=== PATIENT | male | born 1970 | race Caucasian/White ===

== ENCOUNTER 2021-05-24 19:36 | Emergency (ER) | payer OTHER, SELFPAY ==
--- NOTE | ~2021-05-24 | XR_ITS ---
EXAMINATION: XR CHEST CLINICAL INFORMATION: Shortness of breath COMPARISON: None TECHNIQUE: Frontal view of the chest was obtained. FINDINGS: Lungs are mildly hypoinflated. Airspace disease is present in the right upper lobe. Also, patchy airspace opacities are observed in the perihilar region of the left lung. No pleural effusion or pneumothorax. Cardiomediastinal silhouette has normal size and contour. The visualized bones and upper abdomen are unremarkable. XR/XR chest 1V IMPRESSION: Bilateral patchy airspace opacities are present. Findings are suggestive of multilobar pneumonia. Recommend radiographic follow-up after medical treatment to ensure diminishing/resolving disease.
[2021-05-24 20:12] VITALS: BP 144/97; PULSE 93; RESP 18; TEMP 37.1; O2SAT 94; BMI 34.9
--- NOTE | 2021-05-24 23:08 | ED.URI ---
HPI - URI/Sore Throat General Chief Complaint: Upper Respiratory Symptoms Stated Complaint: O2 went down/+Covid Time Seen by Provider: 05/24/21 23:08 Source: patient Mode of arrival: ambulatory History of Present Illness HPI Narrative: 50-year-old male with history of hypertension and recent diagnosis on 05/21 presents with increased shortness of breath without chest pain / palpitations stating that he got up from a nap this afternoon and noticed that his home oximeter was registering 86%. Related Data Allergies Allergy/AdvReac Type Severity Reaction Status Date / Time No Known Allergies Allergy Verified 05/24/21 20:10 Review of Systems Review of Systems: Pertinent positives and negatives as stated in HPI 10 point review of systems is otherwise negative. [facility] Past Medical History Source: nursing notes reviewed Medical History Hypertension Social History Social History Advance Directives: No Advance Directives Information Provided: No Physical Exam Vital Signs: Vital Signs: Last Vital Signs Temp 98.8 F 05/24/21 20:12 Pulse 93 05/24/21 20:12 Resp 18 05/24/21 20:12 BP 144/97 H 05/24/21 20:12 Pulse Ox 94 05/24/21 20:12 Body Mass Index 34.9 VITAL SIGNS: Reviewed. GENERAL: Well developed, well nourished, in no acute distress. HEAD: Normocephalic/atraumatic EYES: PERRLA, EOMI LUNGS: Normal breath sounds , tachypnea noted, SpO2<93> on room air, walk test does not demonstrate a decrease in oximetry CARDIOVASCULAR: Regular rate and rhythm without noted murmurs, no JVD or lower extremity edema. ABDOMEN: Soft, non-tender, non-distended with bowel sounds. MUSCULOSKELETAL: No tenderness, deformities, or effusions noted on gross inspection. EXTREMITIES: No cyanosis, clubbing or edema. SKIN: Inspection of the skin reveals no rashes NEUROLOGIC: Alert and oriented x 4. Strength and sensation to light touch were grossly intact x 4. Course Course Course Narrative: 50-year-old male with history and clinical presentation consistent with COVID-19 symptoms and although patient is reporting increased shortness of breath this is consistent with COVID-19 infection and low clinical suspicion for any coagulopathy. On formal walk test on room air patient's oxygenation was noted to be maintained at 95% but the oximeter from [facility] was registering 91%. Review of all investigations negative for acute findings other than chest x-ray evidence patient's noted COVID-19 infection with patchy infiltrates bilaterally. Patient was informed of all results and explained to patient that his symptoms are consistent with his underlying COVID-19 infection. He was also given specific guidelines regarding his oxygenation and that if he finds the value to be less than 92% that he should take a few slow deep breaths and monitor for increase. MDM - URI/Sore Throat Lab Data Result diagrams: 05/24/21 23:08 05/24/21 23:08 Labs: Lab Results 05/24/21 05/24/21 05/24/21 Range/Units 23:08 23:08 23:08 WBC 6.0 (4.8-10.8) X10*3/uL RBC 5.21 (4.60-5.80) X10*6/uL Hgb 15.0 (14.0-18.0) g/dl Hct 44.8 (42.0-52.0) % MCV 86.0 (80.0-98.0) fL MCH 28.8 (27.0-33.0) pg MCHC 33.5 (31.0-36.0) g/dl RDW 12.4 (11.0-16.0) % Plt Count 99 L (160-400) X10*3/uL MPV 10.9 (9.4-12.4) fL Immature Gran % (Auto) 0.3 (0.0-0.4) % Neut % (Auto) 77.6 H (45-73) % Lymph % (Auto) 16.0 L (20-40) % [place] % (Auto) 5.9 (2-11) % Eos % (Auto) 0.0 (0-4) % Baso % (Auto) 0.2 (0-2) % Lymph # (Auto) 1.0 L (1.2-4.9) X10*3/uL [place] # (Auto) 0.4 (0.1-1.2) X10*3/uL Eos # (Auto) 0.0 (0.0-0.4) X10*3/uL Baso # (Auto) 0.0 (0.0-0.2) X10*3/uL Abs Immat Gran (auto) 0.02 (0.00-0.03) X10*3/uL Absolute Neuts (auto) 4.6 (2.0-8.3) x10*3/uL Absolute Nucleated RBC 0.000 (0.0-0.012) X10*3/uL Nucleated RBC % (auto) 0.0 (0.0-0.2) /100WBC Smear Tech's Comments VERIFIED Sodium 136 (135-145) mmol/L Potassium 4.6 (3.3-5.1) mmol/L Chloride 101 (96-108) mmol/L Carbon Dioxide 25 (22-29) mmol/L Anion Gap 15 (12-20) BUN 15 (9-16) mg/dL Creatinine 0.95 (0.5-1.4) mg/dL Estim Creat Clear Calc 108.9 Estimated GFR > 60 Fasting Glucose 129 H (60-99) mg/dL Calcium 9.0 (8.4-10.2) mg/dL COVID-19 ([facility]SHAL) Positive A (Negative) COVID-19 Clin Com See Note Discharge Plan Discharge Clinical Impression: Lab test positive for detection of COVID-19 virus, CASTELLANO (dyspnea on exertion) Patient Disposition: Home, Self-Care Instructions: COVID-19 (Coronavirus Disease 2019) (ED) Additional Instructions: 1. Resume all home medications. 2. Continue to self quarantine as per all state and Federal guidelines. 3. Recommend cool mist humidifier at the bedside while sleeping. Continue with [id number] Tylenol/ ibuprofen as needed for body aches and temperatures greater than 100.4. 4. Set up a telemedicine appointment with your primary care provider for re-evaluation tomorrow morning. 5. On placing the oximeter on your finger allow 1-2 minutes without moving the finger or the oximeter and obtain a value. If this value is less than 92% take some slow deep breaths to determine whether not you see arise in your oxygenation. If the value stays persistently below 92% please return to the emergency room.
[2021-05-24 23:17] LABS: Basophils Percent Auto 0.2 % (0-2); Imm Gran Abs Auto 0.02 X10*3/uL (0.00-0.03); Imm Gran Pct Auto 0.3 % (0.0-0.4); MANUAL DIFF FLAG SCAN; PLT CLUMP 1; Red Cell Distribution Width 12.4 % (11.0-16.0); SCAN SMEAR FLAG 1
[2021-05-24 23:19] LABS: Hematocrit 44.8 % (42.0-52.0); Mean Corpuscular HGB Conc 33.5 g/dl (31.0-36.0); Mean Corpuscular Hemoglobin 28.8 pg (27.0-33.0); Mean Platelet Volume 10.9 fL (9.4-12.4); Monocytes Absolute Auto 0.4 X10*3/uL (0.1-1.2); Monocytes Percent Auto 5.9 % (2-11); Neutrophils Absolute Auto 4.6 x10*3/uL (2.0-8.3); Neutrophils Percent Auto 77.6 % (45-73); Red Blood Count 5.21 X10*6/uL (4.60-5.80)
[2021-05-24 23:20] LABS: Platelet Count 99 X10*3/uL (160-400)
[2021-05-24 23:27] LABS: COVID-19 Test Positive (Negative)
[2021-05-24 23:35] LABS: Anion Gap 15 (12-20); Blood Urea Nitrogen 15 mg/dL (9-16); Carbon Dioxide 25 mmol/L (22-29); Chloride 101 mmol/L (96-108); Creatinine Clr Calc Pharmacy 108.9; Estimated Glomerular Filt Rate > 60; Glucose Fasting 129 mg/dL (60-99); Potassium 4.6 mmol/L (3.3-5.1); Sodium 136 mmol/L (135-145)
[2021-05-24 23:42] LABS: SLIDE REVIEW VERIFIED
[2021-05-25 00:30] VITALS: BP 135/86; PULSE 87; RESP 18; TEMP 37.5; O2SAT 95
== END 2021-05-25 00:51 | disposition home or self-care (01) ==
PROVIDERS: Emergency Provider Student in an Organized Health Care Education/Training Program
DX: U07.1 COVID-19 (principal); I10 Essential (primary) hypertension; R06.02 Shortness of breath; Z79.899 Other long term (current) drug therapy
CPT/HCPCS: 36415; 71045; 80048; 85025; 87635; 99283; 99284

== ENCOUNTER 2021-05-25 19:14 | Emergency (ER) | payer OTHER, SELFPAY ==
--- NOTE | ~2021-05-25 | XR_ITS ---
EXAMINATION: XR CHEST CLINICAL INFORMATION: Covid positive, difficulty breathing COMPARISON: 05/24/2021 TECHNIQUE: 2 views of the chest were obtained. FINDINGS: Allowing for differences in technique, there has been little significant interval change when compared to yesterday's study. Again noted is airspace disease with patchy infiltrate in the right upper lobe as well as in the left mid lung. No pleural effusions are seen. The heart size is normal. XR/XR chest 2V IMPRESSION: No change in the bilateral patchy airspace disease suggesting multi lobar pneumonia or Covid changes.
--- NOTE | 2021-05-25 23:17 | ED.SOB ---
HPI - SOB/Dyspnea General Chief Complaint: Dyspnea Stated Complaint: Covid+ - diff breathing Time Seen by Provider: 05/25/21 23:17 Related Data Allergies Allergy/AdvReac Type Severity Reaction Status Date / Time No Known Allergies Allergy Verified 05/24/21 20:10 PMFSH Past Medical History Medical History Hypertension Social History Social History Advance Directives: No Advance Directives Information Provided: No Discharge Plan Discharge Clinical Impression: Lab test positive for detection of COVID-19 virus, CASTELLANO (dyspnea on exertion) Patient Disposition: Home, Self-Care Instructions: COVID-19 (Coronavirus Disease 2019) (ED), Albuterol (By mouth), Shortness of Breath (ED) Additional Instructions: 1. Resume all home medications as prescribed. 2. Tylenol 1000 mg, orally, every 6 hours as needed for pain, body aches, temperatures greater than 100.4. Do not exceed 4000 mg within 24 hours. 3. Ibuprofen 400 mg, orally with milk or food, every 6 hours as needed for pain, body aches, temperatures greater than 100.4. You can take this medication with the Tylenol for increased symptom relief. 4. Recommend using a cool mist humidifier at the bedside while sleeping. 5. Recommend using [id number] cough medication. 6. Follow-up with your primary care provider via telemedicine for re-evaluation. You must continue to self quarantine as per all state and Federal guidelines. Return to the ER for worsening symptoms.
[2021-05-25] MEDS: Albuterol Sulfate 90 MCG 8 GM INHALER 4 PUFF INHALE (23:32)
[2021-05-26 00:18] VITALS: BP 144/74; PULSE 74; RESP 18; TEMP 37.1; O2SAT 97
== END 2021-05-26 00:19 | disposition home or self-care (01) ==
PROVIDERS: Emergency Provider Student in an Organized Health Care Education/Training Program
DX: U07.1 COVID-19 (principal); R06.02 Shortness of breath; I10 Essential (primary) hypertension
CPT/HCPCS: 71046; 99284